=== PATIENT | male | born 1955 | race Caucasian/White ===

== ENCOUNTER 2022-09-29 12:28 | Emergency (ER) | payer MEDICARE ==
[2022-09-29] MEDS ORDERED: Ketorolac Tromethamine 30 MG/ML VIAL ONE (13:01)
== END 2022-09-29 13:10 | disposition home or self-care (01) ==
LOC: MADERS 12:28
DX: M25.462 Effusion, left knee (principal); E78.5 Hyperlipidemia, unspecified; I10 Essential (primary) hypertension; E11.9 Type 2 diabetes mellitus without complications; Z79.899 Other long term (current) drug therapy; Z79.84 Long term (current) use of oral hypoglycemic drugs
CPT/HCPCS: 96372; 99283; J1885

== ENCOUNTER 2022-12-15 12:22 | Emergency (ER) | payer MEDICARE ==
[2022-12-15] MEDS ORDERED: dilTIAZem 30 MG TAB ONE (15:26)
== END 2022-12-15 15:50 | disposition home or self-care (01) ==
LOC: MADERS 12:22
DX: J06.9 Acute upper respiratory infection, unspecified (principal); I48.20 Chronic atrial fibrillation, unspecified; Z20.822 Contact with and (suspected) exposure to COVID-19; E11.9 Type 2 diabetes mellitus without complications; I10 Essential (primary) hypertension
CPT/HCPCS: 87635; 87804; 93005